=== PATIENT | born 1955 | race Caucasian/White ===

== ENCOUNTER 2017-02-10 16:53 | Emergency (ER) | payer BC ==
--- NOTE | 2017-02-10 17:14 | EDM.PDOC ---
ED HPI GENERAL MEDICAL PROBLEM - General Stated Complaint: PT HAS STOMACH PAINS Time Seen by Provider: 02/10/17 16:57 Source of Information: Reports: Patient History Limitations: Reports: No limitations - History of Present Illness INITIAL COMMENTS - FREE TEXT/NARRATIVE: History of present illness: [] Patient has had one week of intermittent epigastric pain that is burning and radiating through to his back. Denies any shortness of breath, dizziness lightheadedness, fevers, chills vomiting or diarrhea. Is no history of heart disease, ulcers or reflux. Review of systems: As per history of present illness and below otherwise all systems reviewed and negative. Past medical history: As per history of present illness and as reviewed below otherwise noncontributory. Surgical history: As per history of present illness and as reviewed below otherwise noncontributory. Social history: No reported history of drug or alcohol abuse. Family history: As per history of present illness and as reviewed below otherwise noncontributory. Physical exam: General: Well developed, well nourished in NAD HEENT: Atraumatic, normocephalic, pupils reactive, negative for conjunctival pallor or scleral icterus, mucous membranes moist, throat clear, neck supple, nontender, trachea midline. Lungs: Clear to auscultation, breath sounds equal bilaterally, chest nontender. Heart: S1S2, regular, negative for clicks, rubs, or JVD. Abdomen: Soft, nondistended, tender in the epigastric area without rebound or guarding there is no right upper or left upper quadrant tenderness. Negative for masses or hepatosplenomegaly. Negative for costovertebral tenderness. Pelvis: Stable nontender. Genitourinary: Deferred. Rectal: Deferred. Extremities: Atraumatic, negative for cords or calf pain. Neurovascular unremarkable. Neuro: Awake, alert, oriented. Cranial nerves II through XII unremarkable. Cerebellum unremarkable. Motor and sensory unremarkable throughout. Exam nonfocal. Diagnostics: [] Labs and EKG done which were normal Therapeutics: [] Patient was given IV saline and Pepcid improvement Impression: []Epigastric pain Plan: [] Take omeprazole (Prilosec) twice a day for 2 weeks followup with primary care physician return here if any worsening pain occurs, bloody or black stools or vomiting. Definitive disposition and diagnosis as appropriate pending reevaluation and review of above. Epigastric Pain Score (Numeric/FACES): 3 - Related Data Allergies Allergy/AdvReac Type Severity Reaction Status Date / Time No Known Allergies Allergy Verified 02/10/17 17:05 Home Meds: Home Meds . [No Known Home Meds] 02/10/17 [History] Past Medical History - Past Health History Medical/Surgical History: Denies Medical/Surgical History - Infectious Disease History Infectious Disease History: Reports: Chicken pox, Measles, Mumps Social & Family History - Family History Family Medical History: Noncontributory - Tobacco Use Smoking Status *Q: Never Smoker - Recreational Drug Use Recreational Drug Use: No ED ROS GENERAL - Review of Systems Review Of Systems: See Below (See history of present illness) ED EXAM, GI/ABD - Physical Exam Exam: See Below (See history of present illness) Course - Vital Signs Last Recorded V/S: Last Vital Signs Temp 37.1 C 02/10/17 17:02 Pulse 66 02/10/17 17:02 Resp 20 02/10/17 17:02 BP 145/103 H 02/10/17 17:02 Pulse Ox 97 02/10/17 17:02 - Orders/Labs/Meds Orders: Active Orders 24 hr Category Date Time Status EKG 12 Lead [EKG Documentation Completion] [RC] URGENT Care 02/10/17 16:55 Active Sodium Chloride 0.9% [Normal Saline] 1,000 ml Med 02/10/17 17:17 Active IV .Bolus Sodium Chloride 0.9% [Saline Flush] Med 02/10/17 17:17 Active 10 ml FLUSH ASDIRECTED PRN Sodium Chloride 0.9% [Saline Flush] Med 02/10/17 17:17 Active 2.5 ml FLUSH ASDIRECTED PRN Peripheral IV Insertion Adult [OM.PC] Stat Oth 02/10/17 17:16 Ordered Medication Orders Sodium Chloride (Normal Saline) 1,000 mls @ 999 mls/hr IV .Bolus ONE Stop: 02/10/17 18:17 Last Admin: 02/10/17 17:31 Dose: 999 mls/hr Sodium Chloride (Saline Flush) 10 ml FLUSH ASDIRECTED PRN PRN Reason: Keep Vein Open Sodium Chloride (Saline Flush) 2.5 ml FLUSH ASDIRECTED PRN PRN Reason: Keep Vein Open Labs: Laboratory Tests 02/10/17 02/10/17 02/10/17 Range/Units 17:00 17:00 17:00 WBC 10.92 K/uL RBC 5.03 M/uL Hgb 14.6 g/dL Hct 42.2 % MCV 83.9 fL MCH 29.0 pg MCHC 34.6 g/dL RDW Std Deviation 38.2 (28.0-62.0) fl RDW Coeff of Ernestina 13 % Plt Count 315 K/uL MPV 8.90 fL Neut % (Auto) 49.5 % Lymph % (Auto) 44.9 % [place] % (Auto) 3.8 % Eos % (Auto) 1.3 % Baso % (Auto) 0.5 % Neut # (Auto) 5.4 K/uL Lymph # (Auto) 4.9 K/uL [place] # (Auto) 0.4 K/uL Eos # (Auto) 0.1 K/uL Baso # (Auto) 0.1 K/uL Nucleated RBC % 0.0 /100WBC Nucleated RBCs # 0 K/uL Sodium 138 mmol/L Potassium 4.4 mmol/L Chloride 105 mmol/L Carbon Dioxide 24 mmol/L BUN 25 mg/dL Creatinine 1.1 mg/dL Est Cr Clr Drug Dosing TNP Estimated GFR (MDRD) 67.8 ml/min Glucose 85 mg/dL Calcium 9.5 mg/dL Total Bilirubin 0.8 mg/dL AST 20 IU/L ALT 19 IU/L Alkaline Phosphatase 77 Troponin I < 0.10 NG/ML Total Protein 7.4 g/dL Albumin 4.5 g/dL Globulin 2.9 g/dL Albumin/Globulin Ratio 1.6 Lipase 17 U/L Meds: Medications Generic Name Dose Route Start Last Admin Trade Name Freq PRN Reason Stop Dose Admin Sodium Chloride 1,000 mls @ 999 mls/hr 02/10/17 17:17 02/10/17 17:31 Normal Saline IV 02/10/17 18:17 999 mls/hr .Bolus ONE Administration Sodium Chloride 10 ml 02/10/17 17:17 Saline Flush FLUSH ASDIRECTED PRN Keep Vein Open Sodium Chloride 2.5 ml 02/10/17 17:17 Saline Flush FLUSH ASDIRECTED PRN Keep Vein Open Discontinued Medications Generic Name Dose Route Start Last Admin Trade Name Freq PRN Reason Stop Dose Admin Famotidine 20 mg 02/10/17 17:17 02/10/17 17:31 Pepcid IVPUSH 02/10/17 17:18 20 mg ONETIME ONE Administration Departure - Departure Time of Disposition: 18:04 Disposition: Home, Self-Care 01 Condition: good Clinical Impression: Epigastric abdominal pain - Discharge Information Additional Instructions: The following information is given to patients seen in the emergency department who are being discharged to home. This information is to outline your options for follow-up care. We provide all patients seen in our emergency department with a follow-up referral. The need for follow-up, as well as the timing and circumstances, are variable depending upon the specifics of your emergency department visit. If you don't have a primary care physician on staff, we will provide you with a referral. We always advise you to contact your personal physician following an emergency department visit to inform them of the circumstance of the visit and for follow-up with them and/or the need for any referrals to a consulting specialist. The emergency department will also refer you to a specialist when appropriate. This referral assures that you have the opportunity for follow-up care with a specialist. All of these measure are taken in an effort to provide you with optimal care, which includes your follow-up. Under all circumstances we always encourage you to contact your private physician who remains a resource for coordinating your care. When calling for follow-up care, please make the office aware that this follow-up is from your recent emergency room visit. If for any reason you are refused follow-up, please contact the [facility] Emergency Department at and asked to speak to the emergency department charge nurse. Take omeprazole twice a day or 2 weeks followup with PMD [facility] [address] [place] [id number] - My Orders Last 24 Hours: My Active Orders 02/10/17 16:55 EKG 12 Lead [EKG Documentation Completion] [RC] URGENT 02/10/17 17:16 Peripheral IV Insertion Adult [OM.PC] Stat 02/10/17 17:17 Sodium Chloride 0.9% [Normal Saline] 1,000 ml IV .Bolus Sodium Chloride 0.9% [Saline Flush] 10 ml FLUSH ASDIRECTED PRN Sodium Chloride 0.9% [Saline Flush] 2.5 ml FLUSH ASDIRECTED PRN - Assessment/Plan Last 24 Hours: My Active Orders 02/10/17 16:55 EKG 12 Lead [EKG Documentation Completion] [RC] URGENT 02/10/17 17:16 Peripheral IV Insertion Adult [OM.PC] Stat 02/10/17 17:17 Sodium Chloride 0.9% [Normal Saline] 1,000 ml IV .Bolus Sodium Chloride 0.9% [Saline Flush] 10 ml FLUSH ASDIRECTED PRN Sodium Chloride 0.9% [Saline Flush] 2.5 ml FLUSH ASDIRECTED PRN
[2017-02-10] MEDS ORDERED: Sodium Chloride 0.9% 10 ML Syringe FLUSH PRN (17:17)
[2017-02-10] MEDS ORDERED: Sodium Chloride 0.9% 2.5 ML Syringe FLUSH PRN (17:17)
[2017-02-10] MEDS ORDERED: Famotidine 20 MG/2 ML SDV IVPUSH ONE (17:17)
[2017-02-10] MEDS ORDERED: Sodium Chloride 0.9% 1,000 ML IV ONE (17:17)
[2017-02-10 17:34] LABS: CHLORIDE,CL 105 mmol/L; SODIUM,NA 138 mmol/L
[2017-02-10 18:33] VITALS: BP 125/88
== END 2017-02-10 18:17 | disposition home or self-care (01) ==
LOC: EDSEX 16:53 → MW.ED 16:53
DX: R10.13 Epigastric pain (principal)
CPT/HCPCS: 80053; 83690; 84484; 85025; 93005; 96361; 96374; 99285; J7040; 99284; 99284-25